=== PATIENT | female | born 1990 | race Caucasian/White ===

== ENCOUNTER → 2016-10-09 | Outpatient (CLI) | payer BC ==
--- NOTE | 2016-10-09 11:16 | US ---
EXAMINATION TYPE: US abdomen complete DATE OF EXAM: 10/09/2016 7:36 AM COMPARISON: NONE CLINICAL HISTORY: Abd Pain R10.9. Epigastric pain x 3 weeks, nausea EXAM MEASUREMENTS: Liver Length: 16.5 cm Gallbladder Wall: 0.2 cm CBD: 0.5 cm Spleen: 12.4 cm Right Kidney: 11.6 x 3.9 x 4.5 cm Left Kidney: 9.3 x 5.1 x 4.9 cm Pancreas: visualized portions appear wnl Liver: wnl Gallbladder: multiple folds/septations noted Evidence for sonographic Kerns's sign: no CBD: wnl Spleen: wnl Right Kidney: no evidence of hydronephrosis or mass Left Kidney: no evidence of hydronephrosis or mass Upper IVC: wnl Abd Aorta: visualized portions appear wnl, mid obscured by overlying bowel content IMPRESSION: 1. Septations at the fundus of the gallbladder of uncertain significance. No acute cholecystitis aguirre ges are evident.
== END | disposition home or self-care (01) ==
LOC: RADUSWWP 07:02
PROVIDERS: ATTEND Family Medicine
DX: R10.9 Unspecified abdominal pain (principal)
CPT/HCPCS: 76700

== ENCOUNTER → 2016-10-31 | Outpatient (CLI) | payer BC ==
--- NOTE | 2016-10-31 17:26 | NM ---
EXAMINATION TYPE: NM hepatobiliary w EF DATE OF EXAM: 10/31/2016 3:26 PM COMPARISON: Ultrasound abdomen 09 October 2016 HISTORY: Abdominal pain TECHNIQUE: After the intravenous administration of 5.4 mCi Tc 99m Mebrofenin hepatobiliary scintigrap hy is performed. Immediate images post injection. FINDINGS: There is satisfactory initial accumulation of tracer by the liver. The gallbladder is visualized wit hin 18 minutes. The small bowel activity is noted within 10 minutes. At one hour 8 ounces of oral e nsure plus is given to mimic CCK and gallbladder ejection fraction is calculated at 91 %. Therefore there is no scintigraphic evidence of cystic or common bile duct obstruction to suggest acute cholecy stitis. IMPRESSION: Gallbladder ejection fraction is 91% which may be hyperactive, no cystic duct obstruction
== END ==
LOC: RADNMMAIN 13:12
PROVIDERS: ATTEND Family Medicine
DX: R10.9 Unspecified abdominal pain (principal)
CPT/HCPCS: 78226; A9537

== ENCOUNTER 2016-12-17 06:33 | Day surgery (SDC) | payer BC ==
[2016-12-11 17:48] VITALS: BMI 23.7
[~2016-12-17 06:33] MED LIST: DEXAMETHASONE SOD PHOSPHATE 10 MG/ML 1 ML VIAL IV ONE; HEPARIN SODIUM,PORCINE 5,000 UNIT/ML 1 ML VIAL SQ ONE; LACTATED RINGERS 1,000 ML IV SCH; LIDOCAINE 1% 20 ML VIAL (10MG/ML) FOR IV START INTRADERMA PRN; MIDAZOLAM 2 MG/2 ML VIAL IV PRN; ONDANSETRON 4 MG/2 ML VIAL IVP ONE; SCOPOLAMINE 1.5MG/72HR PATCH TRANSDERM ONE
[2016-12-17] MEDS ORDERED: BUPIVACAIN-EPI 0.25%-1:200,000 30 ML VIAL SQ ONE ×2 (07:16→08:04)
--- NOTE | 2016-12-17 07:38 | P.GSHP ---
History of Present Illness H&P Date: 12/17/16 Chief Complaint: Right upper quadrant pain This a 26-year-old female referred from Dr. Jeb Mazariegos. Patient presents today for laparoscopic cholestatic. Patient has had complaints of right upper quadrant pain. Her recent HIDA scan shows abnormal ejection fraction. Past Medical History Past Medical History: GERD/Reflux Additional Past Medical History / Comment(s): ABD PAIN, CHOLECYSTITIS. History of Any Multi-Drug Resistant Organisms: None Reported Past Surgical History: No Surgical Hx Reported Additional Past Surgical History / Comment(s): EXC THYROGLOSSAL DUCT CYST. Past Anesthesia/Blood Transfusion Reactions: No Reported Reaction Smoking Status: Never smoker - Past Family History Mother Family Medical History: No Reported History Medications and Allergies Home Medications Medication Instructions Recorded Confirmed Type Levonorgestrel-Ethin Estradiol 1 tab PO DAILY 05/19/16 12/17/16 History [Levora-28 Tablet] Fexofenadine HCl [Any Allergy] 180 mg PO DAILY 12/11/16 12/17/16 History Inulin/Chromium Picolinate [Fiber 2 each PO DAILY 12/11/16 12/17/16 History Gummies Chew] Omeprazole [PriLOSEC] 20 mg PO HS 12/11/16 12/17/16 History Allergies Allergy/AdvReac Type Severity Reaction Status Date / Time No Known Allergies Allergy Verified 12/17/16 06:42 Surgical - Exam Vital Signs Temp Pulse Resp BP Pulse Ox 97.2 F L 79 16 111/55 99 12/17/16 06:52 12/17/16 06:52 12/17/16 06:52 12/17/16 06:52 12/17/16 06:52 - General well developed, no distress - Eyes PERRL - ENT normal pinna - Neck no masses - Respiratory normal expansion - Cardiovascular Rhythm: regular - Abdomen Abdomen: soft, non tender Assessment and Plan Plan: Abnormal HIDA scan ejection fraction, chronic cholecystitis, we'll perform laparoscopic cholecystectomy.
[2016-12-17] MEDS ORDERED: LIDOCAINE 1% INJ 10MG/ML (20 ML MDV) ONE (07:42)
[2016-12-17] MEDS ORDERED: fentaNYL (PF) 50 MCG/ML 2 ML AMP ONE (07:42)
[2016-12-17] MEDS: ceFAZolin 2 GM in SODIUM CHLORIDE 0.9% 100 ML IVPB ONE ×2 (07:42→07:52)
[2016-12-17] MEDS ORDERED: ROCURONIUM BROMIDE 10 MG/ML 10 ML VIAL IV ONE (07:42)
[2016-12-17] MEDS ORDERED: SUCCINYLCHOLINE CHLORIDE 100 MG/5 ML SYR IV ONE (07:42)
[2016-12-17] MEDS ORDERED: PROPOFOL 10 MG/ML 20 ML VIAL IV ONE (07:42)
[2016-12-17] MEDS ORDERED: LACTATED RINGERS 1,000 ML IV ONE ×2 (08:16→11:49)
--- NOTE | 2016-12-17 08:27 | P.OP ---
Date of Procedure: 12/17/16 Preoperative Diagnosis: Cholecystitis Postoperative Diagnosis: Cholecystitis Procedure(s) Performed: Laparoscopic cholecystectomy Implants: Anesthesia: MYNOR Surgeon: Gaudencio Ruano Estimated Blood Loss (ml): 15 Pathology: other (Gallbladder) Condition: stable Disposition: PACU Indications for Procedure: Operative Findings: Description of Procedure: The patient was placed on the operating table. The patient received a general endotracheal tube anesthesia. The patients abdomen was prepped and draped in the usual sterile fashion. Through an infraumbilical stab incision, the fascia of the anterior abdominal wall was grasped with a pair of Kochers and then the Veress needle was placed in the peritoneal cavity. Position of the Veress needle was confirmed with positive drop test. The abdomen was then insufflated. After adequate insufflation, the 10 mm trocar was placed in the peritoneal cavity. Following this the laparoscope was placed in the peritoneal cavity. The patient was placed in the head-up, right side up position and then a 5 mm trocar was placed in the right lateral and right subcostal position under direct visualization. A 8 mm trocar was placed in the epigastric position. The gallbladder was grasped in the fundus and infundibulum. Traction on the gallbladder was placed in the lateral and the cephalad positions. The triangle of Calot was visualized.. The cystic duct was bluntly dissected until the union of the cystic duct and common bile duct was seen. The cystic duct was then divided and sealed with the Harmonic scissors. A PDS Endoloop was then placed throughout the cystic duct stump. The cystic artery divided and sealed with the Harmonic scissors. The gallbladder was then removed from the liver bed using Harmonic scissors. The gallbladder was then extracted through the epigastric port site. Operative field was checked for any bleeding spots and Harmonic scissors was used to coagulate the liver bed. The abdomen was irrigated. The trocars were removed. The skin was closed using interrupted 3-0 Vicryl suture. Dermabond dressing were applied. The patient tolerated the procedure well.
[2016-12-17] MEDS: HYDROmorphone 1 MG/ML 1 ML SYRINGE IVP PRN ×2 (08:40→08:47)
[2016-12-17 08:46] VITALS: TEMP 96.8
[2016-12-17 08:56] VITALS: RESP 16
[2016-12-17] MEDS ORDERED: KETOROLAC 30 MG/ML 1 ML VIAL IVP ONE (09:16)
[2016-12-17 14:36] VITALS: BP 114/62; PULSE 60
== END 2016-12-17 15:28 | disposition home or self-care (01) ==
LOC: OR 06:33
PROVIDERS: ATTEND Surgery
DX: K81.1 Chronic cholecystitis (principal); K21.9 Gastro-esophageal reflux disease without esophagitis; Z79.899 Other long term (current) drug therapy
CPT/HCPCS: 81025; 88304; 47562; J2250; J1644; J1100; J0690; J2405; J2001; J3010; J1885; J1170; J0330; J2704

== ENCOUNTER 2017-02-07 07:56 | Day surgery (SDC) | payer BC ==
[2017-02-06 08:47] VITALS: BMI 23.6
[~2017-02-07 07:56] MED LIST changes: -DEXAMETHASONE SOD PHOSPHATE 10 MG/ML 1 ML VIAL IV ONE; -HEPARIN SODIUM,PORCINE 5,000 UNIT/ML 1 ML VIAL SQ ONE; -LIDOCAINE 1% 20 ML VIAL (10MG/ML) FOR IV START INTRADERMA PRN; -MIDAZOLAM 2 MG/2 ML VIAL IV PRN; -ONDANSETRON 4 MG/2 ML VIAL IVP ONE; -SCOPOLAMINE 1.5MG/72HR PATCH TRANSDERM ONE
[2017-02-07 08:20] VITALS: RESP 16; TEMP 98.6
[2017-02-07] MEDS ORDERED: LIDOCAINE 1% 20 ML VIAL (10MG/ML) FOR IV START INTRADERMA ONE (08:29)
[2017-02-07] MEDS ORDERED: PROPOFOL 10 MG/ML 20 ML VIAL IV ONE (08:46)
[2017-02-07] MEDS ORDERED: LIDOCAINE 1% INJ 10MG/ML (20 ML MDV) ONE (08:46)
--- NOTE | 2017-02-07 08:57 | P.GSHP ---
History of Present Illness H&P Date: 02/07/17 Chief Complaint: GERD This is a 26-year-old female who presents today for EGD. She's had issues with GERD. Past Medical History Past Medical History: GERD/Reflux Additional Past Medical History / Comment(s): ABD PAIN, CHOLECYSTITIS. History of Any Multi-Drug Resistant Organisms: None Reported Past Surgical History: Cholecystectomy Additional Past Surgical History / Comment(s): EXC THYROGLOSSAL DUCT CYST. Past Anesthesia/Blood Transfusion Reactions: Postoperative Nausea & Vomiting ( PONV) Smoking Status: Never smoker - Past Family History Mother Family Medical History: No Reported History Medications and Allergies Home Medications Medication Instructions Recorded Confirmed Type Levonorgestrel-Ethin Estradiol 1 tab PO QAM 05/19/16 02/07/17 History [Levora-28 Tablet] Fexofenadine HCl [Any Allergy] 180 mg PO DAILY 12/11/16 02/07/17 History Inulin/Chromium Picolinate [Fiber 2 each PO DAILY 12/11/16 02/07/17 History Gummies Chew] Omeprazole [PriLOSEC] 20 mg PO HS 12/11/16 02/07/17 History Allergies Allergy/AdvReac Type Severity Reaction Status Date / Time No Known Allergies Allergy Verified 02/06/17 08:41 Surgical - Exam Vital Signs Temp Pulse Resp BP Pulse Ox 98.6 F 75 16 110/69 96 02/07/17 08:19 02/07/17 08:19 02/07/17 08:19 02/07/17 08:19 02/07/17 08:19 - General well developed, no distress - Eyes PERRL - ENT normal pinna - Neck no masses - Respiratory normal expansion - Cardiovascular Rhythm: regular - Abdomen Abdomen: soft, non tender Assessment and Plan Plan: GERD. We'll perform EGD.
--- NOTE | 2017-02-07 09:04 | P.OP ---
Date of Procedure: 02/07/17 Preoperative Diagnosis: GERD Postoperative Diagnosis: Mild antral gastritis No evidence of hiatal hernia Mild esophagitis Procedure(s) Performed: EGD Implants: Anesthesia: MAC Surgeon: Gaudencio Ruano Pathology: other (Antral, esophagus) Condition: stable Disposition: PACU Indications for Procedure: Operative Findings: Description of Procedure: The patient's placed on the endoscopy table in the lateral position. She received IV sedation. The gastroscope placed oropharynx passed in the esophagus and stomach. The scope was then placed through the pylorus. The first and second portion of the duodenum appeared normal. Scope was then brought back the antrum this appeared inflamed. A biopsies performed. Scope was unretroflexed and remainder some appeared normal. There is no hiatal hernia. The GE junction was at 40 cm. The distal esophagus appeared mildly inflamed a biopsies performed. The proximal esophagus appeared normal. The scope was withdrawn for patient.
[2017-02-07 09:28] VITALS: BP 116/70; PULSE 67
== END 2017-02-07 10:11 | disposition home or self-care (01) ==
LOC: ORWHC2ENDO 07:56
PROVIDERS: ATTEND Surgery
DX: K29.50 Unspecified chronic gastritis without bleeding (principal); K21.0 Gastro-esophageal reflux disease with esophagitis; Z79.3 Long term (current) use of hormonal contraceptives; Z79.899 Other long term (current) drug therapy
CPT/HCPCS: 81025; 88305; 88342; 43239; J2001; J2704

== ENCOUNTER 2017-02-14 19:14 | Emergency (ER) | payer BC ==
[2017-02-14] MEDS ORDERED: SODIUM CHLORIDE 0.9% 1,000 ML IV ONE (19:48)
[2017-02-14] MEDS ORDERED: KETOROLAC 30 MG/ML 1 ML VIAL IVP STA (19:48)
--- NOTE | 2017-02-14 20:57 | ED ---
Abdominal Pain HPI - General Source: patient Mode of arrival: ambulatory Limitations: no limitations <Blayne Barba - Last Filed: 02/14/17 22:44> <Krystian Garduno - Last Filed: 02/14/17 23:49> - General Chief Complaint: Abdominal Pain Stated Complaint: Female - History of Present Illness Initial Comments: Patient is a 26-year-old female who presents for evaluation for lower pelvic pain. Past medical history as below. Patient was transferred here from urgent care. She states that she's been having urinary symptoms over the last 2 weeks. She tried some cranberry juice with some moderate relief. However her symptoms returned. At that time she tried Azo for her symptoms but had no symptomatically improvement. Over the last couple of days she noticed that she was having some lower pelvic cramping. She also had vaginal discharge which was consistent with a yeast infection which she has had before in the past. She 's also her menstrual cycle. She has associated nausea. The pain is described as a cramping sensation. Nothing makes it better or worse. Per the patient, she states that her urinalysis was negative at urgent care. Her urinary symptoms that she is currently having is urgency and increased frequency. She denies fever, chills, headache and changes of vision, URI symptoms, charge breath, cough, chest pain or vomiting, diarrhea. She has no history of sexually transmitted infections. She is and is sexually active with only one partner. No history of PID or any other severe pelvic infections. She has never had a ovarian cyst however multiple family members have had ovarian cyst. (Balyne Barba) - Related Data Home Medications Medication Instructions Recorded Confirmed Levonorgestrel-Ethin Estradiol 1 tab PO QAM 05/19/16 02/14/17 [Levora-28 Tablet] Omeprazole [PriLOSEC] 20 mg PO HS 12/11/16 02/14/17 Previous Rx's Medication Instructions Recorded Doxycycline [Vibramycin] 100 mg PO Q12HR 7 Days 02/14/17 Naproxen 500 mg PO BID PRN #10 tablet 02/14/17 Allergies Allergy/AdvReac Type Severity Reaction Status Date / Time No Known Allergies Allergy Verified 02/14/17 20:09 Review of Systems ROS Other: All systems not noted in ROS Statement are negative. <Blayne Barba - Last Filed: 02/14/17 22:44> ROS Other: All systems not noted in ROS Statement are negative. <Krystian Garduno - Last Filed: 02/14/17 23:49> ROS Statement: Those systems with pertinent positive or pertinent negative responses have been documented in the HPI. Past Medical History Past Medical History: GERD/Reflux Additional Past Medical History / Comment(s): ABD PAIN, CHOLECYSTITIS. History of Any Multi-Drug Resistant Organisms: None Reported Past Surgical History: Cholecystectomy Additional Past Surgical History / Comment(s): EXC THYROGLOSSAL DUCT CYST. Past Anesthesia/Blood Transfusion Reactions: Postoperative Nausea & Vomiting ( PONV) Past Psychological History: No Psychological Hx Reported Smoking Status: Never smoker Past Alcohol Use History: Rare Past Drug Use History: None Reported - Past Family History Mother Family Medical History: No Reported History <Blayne Barba Kamryn - Last Filed: 02/14/17 22:44> General Exam Limitations: no limitations General appearance: alert, in no apparent distress, other (Nontoxic appearing) Head exam: Present: atraumatic, normocephalic, normal inspection Eye exam: Present: normal appearance, PERRL, EOMI. Absent: scleral icterus, conjunctival injection, periorbital swelling ENT exam: Present: normal exam, mucous membranes moist Neck exam: Present: normal inspection. Absent: tenderness, meningismus, lymphadenopathy Respiratory exam: Present: normal lung sounds bilaterally. Absent: respiratory distress, wheezes, rales, rhonchi, stridor Cardiovascular Exam: Present: regular rate, normal rhythm, normal heart sounds. Absent: systolic murmur, diastolic murmur, rubs, gallop, clicks GI/Abdominal exam: Present: soft, normal bowel sounds, other (Some mild suprapubic tenderness. Abdomen is soft and nontender. No peritoneal signs. Negative Kerns sign. Negative McBurney sign. Negative psoas sign and obturator sign. No rebound tenderness. No Rovsing sign.). Absent: distended, tenderness, guarding, rebound, rigid External exam: Present: normal external exam Speculum exam: Present: erythema, vaginal discharge, cervical discharge, vaginal bleeding By manual exam: Present: cervical motion tenderness, adnexal tenderness, other ( Cervicitis. Vaginal discharge. Scant bleeding. Left adnexal tenderness with cervical motion tenderness.) Extremities exam: Present: normal inspection, full ROM, normal capillary refill. Absent: tenderness, pedal edema, joint swelling, calf tenderness Back exam: Present: normal inspection Neurological exam: Present: alert, oriented X3, CN II-XII intact Psychiatric exam: Present: normal affect, normal mood Skin exam: Present: warm, dry, intact, normal color. Absent: rash <Blayne Barba Kamryn - Last Filed: 02/14/17 22:44> Medical Decision Making - Lab Data Result diagrams: 02/14/17 20:43 02/14/17 20:43 <Blayne Barba Kamryn - Last Filed: 02/14/17 22:44> - Lab Data Result diagrams: 02/14/17 20:43 02/14/17 20:43 - Radiology Data Radiology results: report reviewed (Computed tomography scan of the abdomen and pelvis shows no inflammatory change. Multi lobulated uterus. Enhancing lesion up to 2.1 cm right lobe of the liver is nonspecific. Vaginal ultrasound shows a bicornate uterus otherwise unremarkable study.) <Krystian Garduno - Last Filed: 02/14/17 23:49> - Medical Decision Making Patient is a 26-year-old female who presents for evaluation for urinary tract infection symptoms with likely yeast infection and pelvic cramping. Currently on her menstrual cycle. She gets her cycles every 3 months secondary to the control that she is on. Refusing pelvic examination at this time. Discussed risks and benefits of this. We'll order basic labs with urinalysis and an ultrasound of her pelvis. -Reviewed laboratory studies. There is a significant delay in obtaining laboratory studies. CBC and CMP within normal limits. Not . 2139: Patient away at ultrasound right now. 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 Cannot visualize the ovaries. Performed pelvic examination. Cervicitis. Gonorrhea/chalmydia/trich swabs obtained. Cervical motion tenderness. Pain worse on the left versus the right. Clear/whitish type of vaginal discharge. Mild degree of bleeding. No other abnormalities identified on pelvic exam. Because of the tenderness on examination, ordered a CT abdomen and pelvis. Also ordered 2050 mg IM Rocephin, thousand milligrams by mouth azithromycin and 2000 mg by mouth Flagyl. Also ordered Zofran. 2340: Signed pt out to Dr. Garduno. Will follow up with CT findings. Will dispo accordingly. Wrote rx for doxy x 7 days and naproxen as needed for pain. No other NSAIDs during this time. Close f/u with [facility]. Discussed signs/symptoms on when to return to the ED if discharged. Voiced understanding. (Blayne Barba) Patient reevaluated and resting comfortably in bed. Patient updated on results and need for follow-up specifically including need for follow-up regarding liver lesion and ultrasound and further evaluation. Family is present. (Krystian Garduno) - Lab Data Lab Results 02/14/17 02/14/17 02/14/17 Range/Units 20:43 20:43 20:43 WBC 9.6 (3.8-10.6) k/uL RBC 4.96 (3.80-5.40) m/uL Hgb 14.4 (11.4-16.0) gm/dL Hct 43.0 (34.0-46.0) % MCV 86.7 (80.0-100.0) fL MCH 29.1 (25.0-35.0) pg MCHC 33.6 (31.0-37.0) g/dL RDW 12.4 (11.5-15.5) % Plt Count 282 (150-450) k/uL Neutrophils % 46 % Lymphocytes % 45 % Monocytes % 4 % Eosinophils % 3 % Basophils % 1 % Neutrophils # 4.4 (1.3-7.7) k/uL Lymphocytes # 4.3 (1.0-4.8) k/uL Monocytes # 0.4 (0-1.0) k/uL Eosinophils # 0.3 (0-0.7) k/uL Basophils # 0.1 (0-0.2) k/uL Sodium 140 (137-145) mmol/L Potassium 3.7 (3.5-5.1) mmol/L Chloride 105 (98-107) mmol/L Carbon Dioxide 25 (22-30) mmol/L Anion Gap 10 mmol/L BUN 9 (7-17) mg/dL Creatinine 0.76 (0.52-1.04) mg/dL Est GFR (MDRD) Af Amer >60 (>60 ml/min/1.73 sqM) Est GFR (MDRD) Non-Af >60 (>60 ml/min/1.73 sqM) Glucose 79 (74-99) mg/dL Calcium 9.1 (8.4-10.2) mg/dL Total Bilirubin 0.7 (0.2-1.3) mg/dL AST 19 (14-36) U/L ALT 27 (9-52) U/L Alkaline Phosphatase 50 (38-126) U/L Total Protein 7.6 (6.3-8.2) g/dL Albumin 4.4 (3.5-5.0) g/dL HCG, Quant <2.4 mIU/mL Urine Color Yellow Urine Appearance Clear (Clear) Urine pH 6.5 (5.0-8.0) Ur Specific [place] 1.017 (1.001-1.035) Urine Protein Negative (Negative) Urine Glucose (UA) Negative (Negative) Urine Ketones Negative (Negative) Urine Blood Negative (Negative) Urine Nitrite Negative (Negative) Urine Bilirubin Negative (Negative) Urine Urobilinogen 2.0 (<2.0) mg/dL Ur Leukocyte Esterase Negative (Negative) Trichomonas Ag (Rapid) (Negative) 02/14/17 Range/Units 22:50 WBC (3.8-10.6) k/uL RBC (3.80-5.40) m/uL Hgb (11.4-16.0) gm/dL Hct (34.0-46.0) % MCV (80.0-100.0) fL MCH (25.0-35.0) pg MCHC (31.0-37.0) g/dL RDW (11.5-15.5) % Plt Count (150-450) k/uL Neutrophils % % Lymphocytes % % Monocytes % % Eosinophils % % Basophils % % Neutrophils # (1.3-7.7) k/uL Lymphocytes # (1.0-4.8) k/uL Monocytes # (0-1.0) k/uL Eosinophils # (0-0.7) k/uL Basophils # (0-0.2) k/uL Sodium (137-145) mmol/L Potassium (3.5-5.1) mmol/L Chloride (98-107) mmol/L Carbon Dioxide (22-30) mmol/L Anion Gap mmol/L BUN (7-17) mg/dL Creatinine (0.52-1.04) mg/dL Est GFR (MDRD) Af Amer (>60 ml/min/1.73 sqM) Est GFR (MDRD) Non-Af (>60 ml/min/1.73 sqM) Glucose (74-99) mg/dL Calcium (8.4-10.2) mg/dL Total Bilirubin (0.2-1.3) mg/dL AST (14-36) U/L ALT (9-52) U/L Alkaline Phosphatase (38-126) U/L Total Protein (6.3-8.2) g/dL Albumin (3.5-5.0) g/dL HCG, Quant mIU/mL Urine Color Urine Appearance (Clear) Urine pH (5.0-8.0) Ur Specific [place] (1.001-1.035) Urine Protein (Negative) Urine Glucose (UA) (Negative) Urine Ketones (Negative) Urine Blood (Negative) Urine Nitrite (Negative) Urine Bilirubin (Negative) Urine Urobilinogen (<2.0) mg/dL Ur Leukocyte Esterase (Negative) Trichomonas Ag (Rapid) Negative (Negative) Disposition <Blayne Barba - Last Filed: 02/14/17 22:44> <Krystian Garduno - Last Filed: 02/14/17 23:49> Clinical Impression: Pelvic pain, Cervicitis Disposition: HOME SELF-CARE Condition: Stable Instructions: Cervicitis (ED) Additional Instructions: Please follow-up with Dr. Penaloza in the next day or [address] Penaloza further evaluate liver abnormality. He will likely need ultrasound. Return for fever, increased pain, worsening or change in symptoms or other concerns. Prescriptions: Doxycycline [Vibramycin] 100 mg PO Q12HR 7 Days Naproxen 500 mg PO BID PRN #10 tablet PRN Reason: Pain Referrals: Jeb Penaloza DO [Primary Care Provider] - 1-2 days Paige Hernandez MD [STAFF PHYSICIAN] - 1-2 days
[2017-02-14 21:02] LABS: Appearance,Urine Clear (Clear); Bilirubin,Urine Negative (Negative); Glucose,Urine (UA) Negative (Negative); Ketones,Urine Negative (Negative); Leukocyte Esterase,Urine Negative (Negative); Nitrite,Urine Negative (Negative); PH, Urine 6.5 (5.0-8.0); Protein,Urine Negative (Negative); Specific Gravity,Urine 1.017 (1.001-1.035); UA Billing (MACRO vs. MICRO) CHEM
[2017-02-14 21:07] LABS: Basophils # (A) 0.1 k/uL (0-0.2); Basophils % (A) 1 %; CH 29.1; CHCM 33.7; Eosinophils # (A) 0.3 k/uL (0-0.7); Eosinophils % (A) 3 %; HDW 2.26; HGB 14.4 gm/dL (11.4-16.0); Luc # (Auto) 0.24; Luc % (Auto) 3; Lymphocytes # (A) 4.3 k/uL (1.0-4.8); Lymphocytes % (A) 45 %; MCH 29.1 pg (25.0-35.0); MCHC 33.6 g/dL (31.0-37.0); MCV 86.7 fL (80.0-100.0); Mean Platelet Volume 6.4; Monocytes # (A) 0.4 k/uL (0-1.0); Monocytes % (A) 4 %; Neutrophils # (A) 4.4 k/uL (1.3-7.7); Neutrophils % (A) 46 %; RBC 4.96 m/uL (3.80-5.40); RDW 12.4 % (11.5-15.5); WBC 9.6 k/uL (3.8-10.6); WBC (Perox) 9.75
[2017-02-14 21:12] LABS: ALT 27 U/L (9-52); AST 19 U/L (14-36); Alkaline Phosphatase 50 U/L (38-126); Anion Gap 10 mmol/L; Blood Urea Nitrogen 9 mg/dL (7-17); Calcium 9.1 mg/dL (8.4-10.2); Carbon Dioxide 25 mmol/L (22-30); Chloride 105 mmol/L (98-107); Glucose 79 mg/dL (74-99); Non-African American GFR(MDRD) >60 (>60 ml/min/1.73 sqM); Potassium 3.7 mmol/L (3.5-5.1); Sodium 140 mmol/L (137-145); Total Bilirubin 0.7 mg/dL (0.2-1.3); Total Protein 7.6 g/dL (6.3-8.2)
--- NOTE | 2017-02-14 21:44 | US ---
EXAMINATION TYPE: US transvaginal DATE OF EXAM: 02/14/2017 COMPARISON: NONE CLINICAL HISTORY: Pain. TECHNIQUE: Transvaginal (TV) Date of LMP: 02/12/2017 EXAM MEASUREMENTS: Uterus: 7.9 x 2.5 x 5.3 cm Endometrial Stripe: 0.46 cm 1. Uterus: Bicornuate wnl 2. Endometrium: wnl 3. Right Ovary: Obscured by overlying bowel gas 4. Left Ovary: Obscured by overlying bowel gas 5. Bilateral Adnexa: wnl 6. Posterior cul-de-sac: wnl IMPRESSION: 1. Bicornuate uterus. Otherwise unremarkable study.
[2017-02-14 21:55] VITALS: RESP 16; TEMP 98.7
[2017-02-14] MEDS ORDERED: metroNIDAZOLE 500 MG TAB PO STA (22:24)
[2017-02-14] MEDS ORDERED: ONDANSETRON 4 MG/2 ML VIAL IVP STA (22:24)
[2017-02-14] MEDS ORDERED: cefTRIAXone 250 MG VIAL IM STA (22:24)
[2017-02-14] MEDS ORDERED: AZITHROMYCIN 500 MG TAB PO STA (22:24)
[2017-02-14] MEDS ORDERED: RX INFO: IV CONTRAST WAS GIVEN 1 EACH MISC MISCELLANE PRN (22:24)
--- NOTE | 2017-02-14 23:30 | CT ---
EXAM: CT Abdomen and Pelvis With Intravenous Contrast CLINICAL HISTORY: Abdominal and pelvic pain TECHNIQUE: Axial computed tomography images of the abdomen and pelvis with 100ML OF OMNI 300 intravenous contrast. CTDI is 11 mGy and DLP is 519.9 mGy-cm. This CT exam was performed using one or more of the following dose reduction techniques: automated exposure control, adjustment of the mA and/or kV according to patient size, and/or use of iterative reconstruction technique. Coronal and sagittal reconstructions are performed. COMPARISON: Pelvic ultrasound from 02/14/17 FINDINGS: Lower thorax: No acute findings. ABDOMEN: Liver: 1.7 x 2.1 x 1.5 cm homogeneously enhancing lesion in the right lobe of liver, best seen on series 7 image 35 is nonspecific. Gallbladder and bile ducts: Unremarkable. No calcified stones. No ductal dilation. Pancreas: Unremarkable. No mass. No ductal dilation. Spleen: Unremarkable. No splenomegaly. Adrenals: Unremarkable. No mass. Kidneys and ureters: Unremarkable. No solid mass. No hydronephrosis. Stomach and bowel: Unremarkable. No obstruction. No mucosal thickening. Appendix: No findings to suggest acute appendicitis. PELVIS: Bladder: Unremarkable. No mass. Reproductive: Multilobulated uterus may corresponds to ultrasound findings of bicornuate uterus versus uterine fibroid. ABDOMEN and PELVIS: Intraperitoneal space: Unremarkable. No free air. No significant fluid collection. Bones/joints: No acute fracture. No dislocation. Soft tissues: Unremarkable. Vasculature: Unremarkable. No abdominal aortic aneurysm. Lymph nodes: Unremarkable. No enlarged lymph nodes. IMPRESSION: 1. No inflammatory change in abdomen or pelvis. 2. Multilobulated uterus may corresponds to ultrasound findings of bicornuate uterus versus uterine fibroid. 3. 1.7 x 2.1 x 1.5 cm homogeneously enhancing lesion in the right lobe of liver, best seen on series 7 image 35 is nonspecific. Differential includes hemangioma, adenoma, focal nodular hyperplasia. Less likely etiologies cannot be excluded.
[2017-02-14 23:57] VITALS: BP 108/56; PULSE 97
== END 2017-02-14 23:54 | disposition home or self-care (01) ==
LOC: EC 19:14
DX: N72 Inflammatory disease of cervix uteri (principal); Q51.3 Bicornate uterus; R11.0 Nausea; K21.9 Gastro-esophageal reflux disease without esophagitis; Z79.3 Long term (current) use of hormonal contraceptives; Z79.899 Other long term (current) drug therapy; Z90.49 Acquired absence of other specified parts of digestive tract
CPT/HCPCS: 36415; 80053; 87491; 85025; 81003; 84702; 87808; 87070; 87086; 76830; 74177; 99284; 96374; 96375; 96361; 96372; J2405; J0696; J1885; Q9967; 87205

== ENCOUNTER → 2017-04-01 | Outpatient (CLI) | payer BC ==
[2017-04-01 09:19] LABS: Basophils % (A) 1 %; CH 28.6; CHCM 32.2; Eosinophils # (A) 0.2 k/uL (0-0.7); Eosinophils % (A) 3 %; HCT 44.6 % (34.0-46.0); HDW 2.22; HGB 14.3 gm/dL (11.4-16.0); Luc # (Auto) 0.16; Luc % (Auto) 3; Lymphocytes # (A) 2.3 k/uL (1.0-4.8); Lymphocytes % (A) 37 %; MCH 28.8 pg (25.0-35.0); MCHC 32.2 g/dL (31.0-37.0); MCV 89.4 fL (80.0-100.0); Mean Platelet Volume 6.2; Monocytes # (A) 0.3 k/uL (0-1.0); Monocytes % (A) 5 %; Neutrophils # (A) 3.3 k/uL (1.3-7.7); Neutrophils % (A) 51 %; RBC 4.99 m/uL (3.80-5.40); RDW 12.3 % (11.5-15.5); WBC 6.3 k/uL (3.8-10.6); WBC (Perox) 6.84
== END | disposition home or self-care (01) ==
LOC: LABPAT 08:32
PROVIDERS: ATTEND Obstetrics & Gynecology
DX: Z01.812 Encounter for preprocedural laboratory examination (principal); R10.2 Pelvic and perineal pain; G89.29 Other chronic pain
CPT/HCPCS: 85025

== ENCOUNTER 2017-08-19 22:09 | Emergency (ER) | payer BC ==
[2017-08-19 22:16] VITALS: RESP 16
[2017-08-19] MEDS ORDERED: ONDANSETRON 4 MG/2 ML VIAL IVP STA (22:46)
[2017-08-19] MEDS ORDERED: SODIUM CHLORIDE 0.9% 1,000 ML IV STA ×2 (22:46)
[2017-08-19] MEDS ORDERED: MORPHINE SULFATE 4 MG/ML SYRINGE IVP STA (22:46)
[2017-08-19] MEDS ORDERED: MAG HYDROX/AL HYDROX/SIMETH 30 ML, HYOSCYAMINE ELIXIR 10 ML, CIMETIDINE HCL 300 MG, LID... PO STA ×4 (22:49)
--- NOTE | 2017-08-19 22:57 | ED ---
Abdominal Pain HPI - General Chief Complaint: Abdominal Pain Stated Complaint: abdominal pain Time Seen by Provider: 08/19/17 22:26 Source: patient, RN notes reviewed, old records reviewed Mode of arrival: ambulatory Limitations: no limitations - History of Present Illness Initial Comments: This patient is a 27-year-old female presents emergency department today chief complaint of epigastric abdominal pain. Should persist she has history of GERD. She states that she has been monitoring her diet diligently to avoid any exacerbations. She was sinus with gastritis earlier this month and reports that she was doing somewhat better after doing clear liquid diet and brought diet. She states that she does not know why he occurred for her to be more painful for the past few days. She states that she's had no emesis, denies any changes in bowel habits. She reports no urinary symptoms. She states that she her abdomen is tender. She has a history of a cholecystectomy completed one year ago. She also reports that she had a scope at that time and was diagnosed with GERD. - Related Data Home Medications Medication Instructions Recorded Confirmed Levonorgestrel-Ethin Estradiol 1 tab PO QAM 05/19/16 04/09/17 [Levora-28 Tablet] Omeprazole [PriLOSEC] 40 mg PO HS 12/11/16 04/09/17 Allergies Allergy/AdvReac Type Severity Reaction Status Date / Time No Known Allergies Allergy Verified 08/19/17 22:16 Review of Systems ROS Statement: Those systems with pertinent positive or pertinent negative responses have been documented in the HPI. ROS Other: All systems not noted in ROS Statement are negative. Past Medical History Past Medical History: GERD/Reflux Additional Past Medical History / Comment(s): ABD PAIN History of Any Multi-Drug Resistant Organisms: None Reported Past Surgical History: Cholecystectomy Additional Past Surgical History / Comment(s): EXC THYROGLOSSAL DUCT CYST., EGD. exploratoryt laproscopic. Past Anesthesia/Blood Transfusion Reactions: Motion Sickness, Postoperative Nausea & Vomiting (PONV) Additional Past Anesthesia/Blood Transfusion Reaction / Comment(s): FEELS SLUGGISH, DIZZY AND NAUSEATED POST-OP Past Psychological History: No Psychological Hx Reported Smoking Status: Never smoker Past Alcohol Use History: Rare Past Drug Use History: None Reported - Past Family History Mother Family Medical History: No Reported History General Exam - General Exam Comments Initial Comments: This is a 27 year old female, no distress. Limitations: no limitations General appearance: alert, in no apparent distress Head exam: Present: atraumatic, normocephalic, normal inspection Eye exam: Present: normal appearance, PERRL, EOMI. Absent: scleral icterus, conjunctival injection, periorbital swelling ENT exam: Present: normal exam, mucous membranes moist Neck exam: Present: normal inspection. Absent: tenderness, meningismus, lymphadenopathy Respiratory exam: Present: normal lung sounds bilaterally. Absent: respiratory distress, wheezes, rales, rhonchi, stridor Cardiovascular Exam: Present: regular rate, normal rhythm, normal heart sounds. Absent: systolic murmur, diastolic murmur, rubs, gallop, clicks GI/Abdominal exam: Present: soft, tenderness (left upper quadrant tenderness), normal bowel sounds. Absent: distended, guarding, rebound, rigid Extremities exam: Present: normal inspection, full ROM, normal capillary refill. Absent: tenderness, pedal edema, joint swelling, calf tenderness Back exam: Present: normal inspection Neurological exam: Present: alert, oriented X3, CN II-XII intact Psychiatric exam: Present: normal affect, normal mood Skin exam: Present: warm, dry, intact, normal color. Absent: rash Course Vital Signs 08/19/17 08/20/17 22:12 00:25 Temperature 97.5 F L 98.2 F Pulse Rate 71 66 Respiratory 16 16 Rate Blood Pressure 110/72 108/55 O2 Sat by Pulse 100 99 Oximetry Medical Decision Making - Medical Decision Making This patient is a 27-year-old female presents emergency department today chief complaint of epigastric abdominal pain. Should persist she has history of GERD. She states that she has been monitoring her diet diligently to avoid any exacerbations. She was sinus with gastritis earlier this month and reports that she was doing somewhat better after doing clear liquid diet and brought diet. She states that she does not know why he occurred for her to be more painful for the past few days. She states that she's had no emesis, denies any changes in bowel habits. She reports no urinary symptoms. Patient was given GI cocktail, nausea medication. Patient lab work was reviewed and normal. Disucssed that patient likely has gastri culcer, adn apatient reports that she also has been wanting to start taking zantac as well as protonix. Discussed that patient needs to have clear liquid diet. discussed follow up with GI. She reports she has an appt with [facility] next week for chronic fatigue. Discussed return parameters. - Lab Data Result diagrams: 08/19/17 22:36 08/19/17 22:36 Lab Results 08/19/17 08/19/17 08/19/17 Range/Units 22:36 22:36 22:36 WBC 8.2 (3.8-10.6) k/uL RBC 4.60 (3.80-5.40) m/uL Hgb 13.2 (11.4-16.0) gm/dL Hct 40.9 (34.0-46.0) % MCV 88.9 (80.0-100.0) fL MCH 28.8 (25.0-35.0) pg MCHC 32.4 (31.0-37.0) g/dL RDW 12.1 (11.5-15.5) % Plt Count 258 (150-450) k/uL Neutrophils % 48 % Lymphocytes % 44 % Monocytes % 4 % Eosinophils % 2 % Basophils % 0 % Neutrophils # 4.0 (1.3-7.7) k/uL Lymphocytes # 3.6 (1.0-4.8) k/uL Monocytes # 0.3 (0-1.0) k/uL Eosinophils # 0.1 (0-0.7) k/uL Basophils # 0.0 (0-0.2) k/uL PT 11.2 (9.0-12.0) sec INR 1.2 H (<1.2) APTT 28.6 (22.0-30.0) sec Sodium 139 (137-145) mmol/L Potassium 3.8 (3.5-5.1) mmol/L Chloride 106 (98-107) mmol/L Carbon Dioxide 24 (22-30) mmol/L Anion Gap 9 mmol/L BUN 11 (7-17) mg/dL Creatinine 0.70 (0.52-1.04) mg/dL Est GFR (MDRD) Af Amer >60 (>60 ml/min/1.73 sqM) Est GFR (MDRD) Non-Af >60 (>60 ml/min/1.73 sqM) Glucose 89 (74-99) mg/dL Calcium 8.8 (8.4-10.2) mg/dL Total Bilirubin 0.6 (0.2-1.3) mg/dL AST 19 (14-36) U/L ALT 22 (9-52) U/L Alkaline Phosphatase 44 (38-126) U/L Total Protein 7.0 (6.3-8.2) g/dL Albumin 3.9 (3.5-5.0) g/dL Amylase 67 (30-110) U/L Lipase 118 (23-300) U/L Urine Color Urine Appearance (Clear) Urine pH (5.0-8.0) Ur Specific [place] (1.001-1.035) Urine Protein (Negative) Urine Glucose (UA) (Negative) Urine Ketones (Negative) Urine Blood (Negative) Urine Nitrite (Negative) Urine Bilirubin (Negative) Urine Urobilinogen (<2.0) mg/dL Ur Leukocyte Esterase (Negative) Urine RBC (0-5) /hpf Urine WBC (0-5) /hpf Ur Squamous Epith Cells (0-4) /hpf Urine Mucus (None) /hpf Urine HCG, Qual (Not Detectd) 08/19/17 08/19/17 Range/Units 23:00 23:00 WBC (3.8-10.6) k/uL RBC (3.80-5.40) m/uL Hgb (11.4-16.0) gm/dL Hct (34.0-46.0) % MCV (80.0-100.0) fL MCH (25.0-35.0) pg MCHC (31.0-37.0) g/dL RDW (11.5-15.5) % Plt Count (150-450) k/uL Neutrophils % % Lymphocytes % % Monocytes % % Eosinophils % % Basophils % % Neutrophils # (1.3-7.7) k/uL Lymphocytes # (1.0-4.8) k/uL Monocytes # (0-1.0) k/uL Eosinophils # (0-0.7) k/uL Basophils # (0-0.2) k/uL PT (9.0-12.0) sec INR (<1.2) APTT (22.0-30.0) sec Sodium (137-145) mmol/L Potassium (3.5-5.1) mmol/L Chloride (98-107) mmol/L Carbon Dioxide (22-30) mmol/L Anion Gap mmol/L BUN (7-17) mg/dL Creatinine (0.52-1.04) mg/dL Est GFR (MDRD) Af Amer (>60 ml/min/1.73 sqM) Est GFR (MDRD) Non-Af (>60 ml/min/1.73 sqM) Glucose (74-99) mg/dL Calcium (8.4-10.2) mg/dL Total Bilirubin (0.2-1.3) mg/dL AST (14-36) U/L ALT (9-52) U/L Alkaline Phosphatase (38-126) U/L Total Protein (6.3-8.2) g/dL Albumin (3.5-5.0) g/dL Amylase (30-110) U/L Lipase (23-300) U/L Urine Color Yellow Urine Appearance Clear (Clear) Urine pH 5.5 (5.0-8.0) Ur Specific [place] 1.014 (1.001-1.035) Urine Protein Negative (Negative) Urine Glucose (UA) Negative (Negative) Urine Ketones Negative (Negative) Urine Blood Negative (Negative) Urine Nitrite Negative (Negative) Urine Bilirubin Negative (Negative) Urine Urobilinogen <2.0 (<2.0) mg/dL Ur Leukocyte Esterase Negative (Negative) Urine RBC 1 (0-5) /hpf Urine WBC 1 (0-5) /hpf Ur Squamous Epith Cells 3 (0-4) /hpf Urine Mucus Occasional H (None) /hpf Urine HCG, Qual Not Detected (Not Detectd) - Radiology Data Radiology results: report reviewed KUB shows normal bowel gas pattern. Disposition Clinical Impression: GERD (gastroesophageal reflux disease) Disposition: HOME SELF-CARE Condition: Good Instructions: Gastroesophageal Reflux in Children (ED) Additional Instructions: Patient is follow-up with primary care physician. Recommended also taking Zantac. Return to emergency department if any alarming signs or symptoms occur. Patient is to do clear liquid diet for the first 2 days, then slowly advance of BRAT diet. Follow-up with GI specialist. Referrals: Jeb Penaloza DO [Primary Care Provider] - 1-2 days Margaret Will MD [STAFF PHYSICIAN] - 1-2 days Time of Disposition: 00:01
[2017-08-19 23:01] LABS: Basophils % (A) 0 %; Eosinophils # (A) 0.1 k/uL (0-0.7); Eosinophils % (A) 2 %; HCT 40.9 % (34.0-46.0); HGB 13.2 gm/dL (11.4-16.0); Lymphocytes # (A) 3.6 k/uL (1.0-4.8); Lymphocytes % (A) 44 %; MCH 28.8 pg (25.0-35.0); MCHC 32.4 g/dL (31.0-37.0); MCV 88.9 fL (80.0-100.0); Mean Platelet Volume 6.9; Monocytes # (A) 0.3 k/uL (0-1.0); Monocytes % (A) 4 %; Neutrophils % (A) 48 %; Platelet Count 258 k/uL (150-450); RDW 12.1 % (11.5-15.5); WBC 8.2 k/uL (3.8-10.6)
[2017-08-19 23:08] LABS: INR 1.2 (<1.2); Partial Thromboplastin Time 28.6 sec (22.0-30.0); Prothrombin Time 11.2 sec (9.0-12.0)
[2017-08-19 23:12] LABS: ALT 22 U/L (9-52); AST 19 U/L (14-36); Albumin 3.9 g/dL (3.5-5.0); Alkaline Phosphatase 44 U/L (38-126); Amylase 67 U/L (30-110); Anion Gap 9 mmol/L; Blood Urea Nitrogen 11 mg/dL (7-17); Calcium 8.8 mg/dL (8.4-10.2); Carbon Dioxide 24 mmol/L (22-30); Chloride 106 mmol/L (98-107); Glucose 89 mg/dL (74-99); Lipase 118 U/L (23-300); Potassium 3.8 mmol/L (3.5-5.1); Sodium 139 mmol/L (137-145); Total Bilirubin 0.6 mg/dL (0.2-1.3)
[2017-08-19 23:17] LABS: Appearance,Urine Clear (Clear); Bilirubin,Urine Negative (Negative); Blood,Urine Negative (Negative); Color,Urine Yellow; Glucose,Urine (UA) Negative (Negative); Ketones,Urine Negative (Negative); Leukocyte Esterase,Urine Negative (Negative); Nitrite,Urine Negative (Negative); PH, Urine 5.5 (5.0-8.0); Protein,Urine Negative (Negative); Specific Gravity,Urine 1.014 (1.001-1.035); Urobilinogen,Urine <2.0 mg/dL (<2.0)
--- NOTE | 2017-08-19 23:48 | XR ---
EXAMINATION TYPE: XR KUB DATE OF EXAM: 08/19/2017 COMPARISON: NONE HISTORY: Epigastric pain TECHNIQUE: 2 views FINDINGS: Bowel gas pattern is normal. There is no sign of intestinal obstruction or pneumoperitoneum . Fecal pattern is normal. Lung bases are clear. There are no pathologic calcifications. There is no sign of a mass. IMPRESSION: Nonacute abdomen.
[2017-08-20 00:26] VITALS: BP 108/55; PULSE 66; TEMP 98.2
[2017-08-20 01:04] LABS: Mucus,Urine Occasional /hpf; RBC,Urine 1 /hpf (0-5); Squamous Epithelial Cell,Urine 3 /hpf (0-4); WBC,Urine 1 /hpf (0-5)
== END 2017-08-20 00:26 | disposition home or self-care (01) ==
LOC: EC 22:09
DX: K21.9 Gastro-esophageal reflux disease without esophagitis (principal); Z79.899 Other long term (current) drug therapy; Z90.49 Acquired absence of other specified parts of digestive tract
CPT/HCPCS: 36415; 80053; 82150; 83690; 85025; 85610; 85730; 81003; 81025; 74018; 99284; 96374; 96375; 96361; J2270; J2405

== ENCOUNTER 2017-09-12 08:28 | Day surgery (SDC) | payer BC ==
[2017-09-10 09:10] VITALS: BMI 21.4
[~2017-09-12 08:28] MED LIST changes: +LIDOCAINE 1% 20 ML VIAL (10MG/ML) FOR IV START INTRADERMA PRN
[2017-09-12 08:37] VITALS: TEMP 97.6
[2017-09-12] MEDS ORDERED: PROPOFOL 10 MG/ML 20 ML VIAL IV ONE (09:12)
[2017-09-12] MEDS ORDERED: fentaNYL (PF) 50 MCG/ML 2 ML AMP ONE (09:12)
[2017-09-12] MEDS ORDERED: GLYCOPYRROLATE 0.2 MG/ML 2 ML VIAL ONE (09:12)
[2017-09-12] MEDS ORDERED: MIDAZOLAM 2 MG/2 ML VIAL ONE (09:12)
[2017-09-12] MEDS ORDERED: LIDOCAINE 1% INJ 10MG/ML (20 ML MDV) ONE (09:12)
--- NOTE | 2017-09-12 09:28 | P.GSHP ---
History of Present Illness H&P Date: 09/12/17 Chief Complaint: GERD, colitis This is a 27-year-old female who has complaints of GERD. Patient is a known history of reflux. Patient also has had complaints of some abdominal cramps and pain and intermittent diarrhea. She presents today for EGD and colonoscopy Past Medical History Past Medical History: GERD/Reflux Additional Past Medical History / Comment(s): intermittent abd. pain, sometimes sensitive to touch, worsening heartburn History of Any Multi-Drug Resistant Organisms: None Reported Past Surgical History: Cholecystectomy Additional Past Surgical History / Comment(s): EXC THYROGLOSSAL DUCT CYST., EGD. exploratory laparoscopy Past Anesthesia/Blood Transfusion Reactions: Motion Sickness, Postoperative Nausea & Vomiting (PONV) Additional Past Anesthesia/Blood Transfusion Reaction / Comment(s): FEELS SLUGGISH, DIZZY AND NAUSEATED POST-OP Smoking Status: Never smoker - Past Family History Mother Family Medical History: No Reported History Medications and Allergies Home Medications Medication Instructions Recorded Confirmed Type Levonorgestrel-Ethin Estradiol 1 tab PO HS 05/19/16 09/12/17 History [Levora-28 Tablet] Omeprazole [PriLOSEC] 40 mg PO HS 12/11/16 09/12/17 History Iodine Supp 1 tab PO DAILY 09/10/17 09/12/17 History Multivitamin/Iron/Folic Acid 1 each PO DAILY 09/10/17 09/12/17 History [Centrum Women Tablet] Psyllium Husk [Metamucil] 0.4 gm PO DAILY 09/10/17 09/12/17 History Zoloft(Unknown Dose) 1 tab PO DAILY 09/10/17 09/12/17 History Allergies Allergy/AdvReac Type Severity Reaction Status Date / Time No Known Allergies Allergy Verified 09/10/17 08:51 Surgical - Exam Vital Signs Temp Pulse Resp BP Pulse Ox 97.6 F 104 H 16 133/75 96 09/12/17 08:36 09/12/17 08:36 09/12/17 08:36 09/12/17 08:36 09/12/17 08:36 - General well developed, no distress - Eyes PERRL - ENT normal pinna - Neck no masses - Respiratory normal expansion - Cardiovascular Rhythm: regular - Abdomen Abdomen: soft Assessment and Plan Assessment: GERD, abdominal pain, diarrhea. We'll perform EGD colonoscopy.
--- NOTE | 2017-09-12 09:48 | P.OP ---
Date of Procedure: 09/12/17 Preoperative Diagnosis: GERD Colitis Postoperative Diagnosis: Antral gastritis Mild esophagitis Normal colon Procedure(s) Performed: EGD Colonoscopy Anesthesia: MAC Surgeon: Gaudencio Ruano Pathology: other (Antrum, esophagus) Condition: stable Disposition: PACU Description of Procedure: PROCEDURE: The patient was placed on the endoscopy table in the lateral position. Digital rectal examination was performed which revealed no abnormalities. Flexible colonoscope was then placed in the patient's anus and passed throughout the entire colon. The ileocecal valve was visualized. The cecum, ascending, transverse, descending and sigmoid colon were normal. The rectum was normal as well. There were no masses, polyps or diverticula noted in the entire colon. Next the gastroscope was placed oropharynx passed in the esophagus and into the stomach. Scope was then placed through the pylorus. The first and second portion of the duodenum appeared normal. Scope was then brought back the antrum this was mildly inflamed. A biopsies performed. The scope was retroflexed and remainder of the stomach appeared normal. There is no significant hiatal hernia. The distal esophagus appeared mildly inflamed a biopsies performed. The proximal esophagus appeared normal. The scope was then withdrawn from patient.
[2017-09-12] MEDS ORDERED: ONDANSETRON 4 MG/2 ML VIAL IVP ONE (10:06)
[2017-09-12 10:08] VITALS: RESP 16
[2017-09-12 10:17] VITALS: BP 113/71; PULSE 66
== END 2017-09-12 10:56 | disposition home or self-care (01) ==
LOC: ORWHC2ENDO 08:28
PROVIDERS: ATTEND Surgery
DX: K29.70 Gastritis, unspecified, without bleeding (principal); K21.0 Gastro-esophageal reflux disease with esophagitis; K52.9 Noninfective gastroenteritis and colitis, unspecified; K31.9 Disease of stomach and duodenum, unspecified; F41.9 Anxiety disorder, unspecified; Z79.899 Other long term (current) drug therapy; Z90.49 Acquired absence of other specified parts of digestive tract; Z79.890 Hormone replacement therapy
CPT/HCPCS: 81025; 88305; 45378; 43239; J2250; J2405; J2001; J3010; J2704

== ENCOUNTER 2019-02-07 22:55 | Emergency (ER) | payer BC ==
[2019-02-07 23:12] VITALS: PULSE 73; RESP 18
--- NOTE | 2019-02-07 23:21 | ED ---
Female Urogenital HPI - General Chief complaint: Urogenital Stated complaint: Female Time Seen by Provider: 02/07/19 23:14 Source: patient, family Mode of arrival: ambulatory Limitations: no limitations - History of Present Illness Initial comments: Shalini is a pleasant previously healthy 28-year-old female who presents the emergency department today with 2 complaints. Patient reports that she has suffered from chronic constipation for most of her life, she states that she regularly takes stool softeners. Patient states that 3-4 days ago she had a very large firm bowel movement and felt significant pain with this. She noted some bright red bleeding since that time has had pain with any bowel movement was concerned she may have a hemorrhoid, she has no history of hemorrhoids but didn't know what else could be causing the discomfort. In addition placed states that she's having some dysuria and is concerned that she may have a urinary tract infection. Patient reports that she has a single sexual partner for sexually transmitted infections. Last Menstrual Period: 01/31/19 - Related Data Home Medications Medication Instructions Recorded Confirmed Levonorgestrel-Ethin Estradiol 1 tab PO HS 05/19/16 09/12/17 [Levora-28 Tablet] Omeprazole [PriLOSEC] 40 mg PO HS 12/11/16 09/12/17 Iodine Supp 1 tab PO DAILY 09/10/17 09/12/17 Multivitamin/Iron/Folic Acid 1 each PO DAILY 09/10/17 09/12/17 [Centrum Women Tablet] Psyllium Husk [Metamucil] 0.4 gm PO DAILY 09/10/17 09/12/17 Zoloft(Unknown Dose) 1 tab PO DAILY 09/10/17 09/12/17 Previous Rx's Medication Instructions Recorded Nitrofurantoin Monohyd/M-Cryst 100 mg PO Q12HR #6 cap 02/08/19 [Macrobid] Allergies Allergy/AdvReac Type Severity Reaction Status Date / Time No Known Allergies Allergy Verified 09/10/17 08:51 Review of Systems ROS Statement: Those systems with pertinent positive or pertinent negative responses have been documented in the HPI. ROS Other: All systems not noted in ROS Statement are negative. Past Medical History Past Medical History: GERD/Reflux Additional Past Medical History / Comment(s): intermittent abd. pain, sometimes sensitive to touch, worsening heartburn History of Any Multi-Drug Resistant Organisms: None Reported Past Surgical History: Cholecystectomy Additional Past Surgical History / Comment(s): EXC THYROGLOSSAL DUCT CYST., EGD. exploratory laparoscopy Past Anesthesia/Blood Transfusion Reactions: Motion Sickness, Postoperative Nausea & Vomiting (PONV) Additional Past Anesthesia/Blood Transfusion Reaction / Comment(s): FEELS S LUGGISH, DIZZY AND NAUSEATED POST-OP Past Psychological History: Anxiety Smoking Status: Never smoker Past Alcohol Use History: None Reported Past Drug Use History: None Reported - Past Family History Mother Family Medical History: No Reported History General Exam - General Exam Comments Initial Comments: Physical Exam GENERAL: Patient is well-developed and well-nourished. Patient is nontoxic and well- hydrated and is in no distress. HENT: Normocephalic, Atraumatic. EYES: PERRL, EOMI PULMONARY: Unlabored respirations. No audible rales rhonchi or wheezing was noted. CARDIOVASCULAR: There is a regular rate and rhythm without any murmurs gallops or rubs. ABDOMEN: Soft and nontender with normal bowel sounds. SKIN: Skin is clear with no lesions or rashes and otherwise unremarkable. : Rectal exam with no evidence of hemorrhoids, possible small anal fissure no active bleeding Normal external genitalia exam NEUROLOGIC: Patient is alert and oriented x3. Moving all extremities spontaneously MUSCULOSKELETAL: Normal extremities with adequate strength and full range of motion. No lower extremity swelling or edema. No calf tenderness. PSYCHIATRIC: Normal psychiatric evaluation. Limitations: no limitations Course Vital Signs 02/07/19 02/08/19 23:09 00:24 Temperature 98.4 F 98 F Pulse Rate 73 73 Respiratory 18 18 Rate Blood Pressure 122/77 109/75 O2 Sat by Pulse 99 97 Oximetry Medical Decision Making - Medical Decision Making The patient was seen and evaluated history is obtained from patient and sign urinalysis confirms urinary tract infection patient will be treated with Macro bid first dose given here in the emergency department sent physical exam with possible anal fissure, this was discussed with the patient, using stool softeners drinking plenty of fluids adding MiraLAX to her diet and following up with GI were recommended. All questions pertaining care were answered return parameters discussed patient discharged home in stable condition. - Lab Data Lab Results 02/07/19 02/07/19 Range/Units 23:15 23:15 Urine Color Yellow Urine Appearance Cloudy H (Clear) Urine pH 5.5 (5.0-8.0) Ur Specific [place] 1.031 (1.001-1.035) Urine Protein Trace H (Negative) Urine Glucose (UA) Negative (Negative) Urine Ketones Negative (Negative) Urine Blood Negative (Negative) Urine Nitrite Negative (Negative) Urine Bilirubin Negative (Negative) Urine Urobilinogen 3.0 (<2.0) mg/dL Ur Leukocyte Esterase Large H (Negative) Urine RBC 3 (0-5) /hpf Urine WBC 52 H (0-5) /hpf Ur Squamous Epith Cells 16 H (0-4) /hpf Urine Bacteria Occasional H (None) /hpf Urine Mucus Many H (None) /hpf Urine HCG, Qual Not Detected (Not Detectd) Disposition Clinical Impression: Urinary tract infection Disposition: HOME SELF-CARE Condition: Stable Instructions (If sedation given, give patient instructions): Urinary Tract Infection in Women (ED) Prescriptions: Nitrofurantoin Monohyd/M-Cryst [Macrobid] 100 mg PO Q12HR #6 cap Is patient prescribed a controlled substance at d/c from ED?: No Referrals: Jeb Penaloza DO [Primary Care Provider] - 1-2 days
[2019-02-07 23:37] LABS: Appearance,Urine Cloudy (Clear); Bacteria,Urine Occasional /hpf; Bilirubin,Urine Negative (Negative); Blood,Urine Negative (Negative); Color,Urine Yellow; Glucose,Urine (UA) Negative (Negative); Ketones,Urine Negative (Negative); Leukocyte Esterase,Urine Large (Negative); Mucus,Urine Many /hpf; Nitrite,Urine Negative (Negative); PH, Urine 5.5 (5.0-8.0); Protein,Urine Trace (Negative); RBC,Urine 3 /hpf (0-5); Specific Gravity,Urine 1.031 (1.001-1.035); Squamous Epithelial Cell,Urine 16 /hpf (0-4); WBC,Urine 52 /hpf (0-5)
[2019-02-08] MEDS ORDERED: NITROFURANTOIN MONOHYD/M-CRYST 100 MG CAP PO STA (00:07)
[2019-02-08 00:26] VITALS: BP 109/75; TEMP 98
== END 2019-02-08 00:28 | disposition home or self-care (01) ==
LOC: EC 22:55
DX: N39.0 Urinary tract infection, site not specified (principal); K59.00 Constipation, unspecified; K21.9 Gastro-esophageal reflux disease without esophagitis; F41.9 Anxiety disorder, unspecified; Z79.899 Other long term (current) drug therapy; Z79.3 Long term (current) use of hormonal contraceptives; Z90.49 Acquired absence of other specified parts of digestive tract
CPT/HCPCS: 81001; 81025; 99283